=== PATIENT | female | born 1930 | race Caucasian/White ===

== ENCOUNTER 2016-09-03 19:44 | Emergency (ER) | payer OTHER ==
[~2016-09-03] VITALS: Ht 157.5 cm; Wt 63.5 kg
[~2016-09-03 19:44] MED LIST: CALC-179 PO; CRANCAP7 PO; GLUCTAB PO; LOVA20TA PO; MAGN400C2 PO; PRED10PA PO; PRIN10TA PO; SUPECAP3 PO
[2016-09-03 19:50] VITALS: BP 168/74; PULSE 79; RESP 18; TEMP 97.8; O2SAT 98
[2016-09-03] MEDS ORDERED: LEVO50TA4 PO (19:50)
[2016-09-03] MEDS ORDERED: LISI10TA3 PO (19:50)
[2016-09-03] MEDS ORDERED: LOVA40TA PO (19:50)
[2016-09-03] MEDS ORDERED: METF500T PO (19:50)
[2016-09-03] MEDS ORDERED: DIPHTH/TETANUS/ACEL PERTUSSIS (BOOSTER) 0.5 ML VIAL/PFS IM ONE (20:00)
[2016-09-03] MEDS ORDERED: LIDOCAINE 1%/EPINEPHrine 1:100,000 SOLN 20 ML VIAL INFIL ONE (20:00)
--- NOTE | 2016-09-03 20:09 | PD ---
HPI Chief Complaint: Fall Time Seen by Provider: 19:48 Travel History International Travel<30 days: No Contact w/Intl Traveler<30days: No Traveled to known affect area: No History of Present Illness HPI This is an 86 year-old woman who was brushing across the street and tripped and fell. She has a laceration to her left eye, as well as pain in her left hand and in her right knee. Denies LOC. Denies neck pain. Is not on a blood thinner. Otherwise has been feeling well and healthy. History Past Medical History Narrative Medical Diabetes Hypertension Hypothyroidism Hyperlipidemia Tetanus Vaccination: < 5 Years Influenza Vaccination: Yes Menopausal: Yes Social History Alcohol Use: Yes Tobacco Use: No (QUIT 35 YEARS AGO) Allergies-Medications (Allergen,Severity, Reaction): Coded Allergies: Penicillin (Verified Allergy, Severe, 09/03/16) Iodine (Verified Adverse Reaction, Intermediate, UNKNOWN, 09/03/16) Reported Meds & Prescriptions Reported Meds & Active Scripts Active Reported Levothyroxine (Levothyroxine Sodium) 50 Mcg Tab 50 Mcg PO DAILY Lovastatin 40 Mg Tab 40 Mg PO DAILY Lisinopril 10 Mg Tab 10 Mg PO DAILY Metformin (Metformin HCl) 500 Mg Tab 500 Mg PO BIDPC With meals Review of Systems Except as stated in HPI: all other systems reviewed are Neg Physical Exam Narrative GENERAL: Well-appearing 86 year-old woman, no acute distress. SKIN: Warm and dry. HEAD: Atraumatic. Normocephalic. EYES: Pupils equal and round. No scleral icterus. No injection or drainage. ENT: No nasal bleeding or discharge. Mucous membranes pink and moist. Laceration about 1.5 cm over the left brow. NECK: Trachea midline. No midline tenderness. Full painless range of motion. CARDIOVASCULAR: Regular rate and rhythm. No murmur appreciated. RESPIRATORY: No accessory muscle use. Clear to auscultation. Breath sounds equal bilaterally. GASTROINTESTINAL: Abdomen soft, non-tender, nondistended. Hepatic and splenic margins not palpable. MUSCULOSKELETAL: No obvious deformities. Left hand is a little bit deformity with swelling of the third finger. She states this is somewhat chronic but is little bit more swollen and tender than normal. Chest is a little tenderness around the wrist but there is no swelling. There is full range of motion of the wrist. Reflow Operator is a little bit abnormal, but also somewhat chronic for her. She has some pain in the right knee. There is no obvious swelling or deformity. She has full range of motion. NEUROLOGICAL: Awake and alert. No obvious cranial nerve deficits. Motor grossly within normal limits. Normal speech. PSYCHIATRIC: Appropriate mood and affect; insight and judgment normal. Data Data Last Documented VS Vital Signs Date Time Temp Pulse Resp B/P Pulse Ox O2 Delivery O2 Flow Rate FiO2 09/03/16 19:57 79 18 98 Room Air 09/03/16 19:50 97.8 168/[address] Brain W/O Iv Contrast(Rout) (09/03/16 ) Hand, Complete (Urt1ctn) (09/03/16 ) Wrist, Complete (Agy2jsx) (09/03/16 ) Knee, Ltd (1 Or 2vws) (09/03/16 ) Lidocai-Epi 1%-1:100,000 Inj (Xylocaine- (09/03/16 20:00) Iepa-Mxy-Lxuony (Booster) Inj (Boostrix (09/03/16 20:00) MDM Medical Decision Making Medical Screen Exam Complete: Yes Emergency Medical Condition: Yes Interpretation(s) Head CT: No bleed or other acute intracranial abnormality. Densely calcified chronic appearing small biparietal meningiomas. Small nonocclusive fluid and a few the left mastoid air cells. No perceptible fractures. Left hand x-ray: Negative. Left wrist x-ray: Negative. Borderline widening and degenerative changes of scapholunate joint. 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 Right knee x-ray: Negative Differential Diagnosis Laceration, ICH, head injury, knee injury, left upper extremity injury, other Narrative Course Medical decision making INITIAL: Is an 86-year-old woman who presents emergent breath of trip and fall. She laceration to the left brow, pain in the left hand, and some pain in the right knee. We'll check CT head, laceration repair, x-rays left hand and wrist , right knee. Procedures Procedure Narrative LACERATION LOCATION: Left brow LENGTH: 2 cm NUMBER OF STITCHES/BEN: 3 buried, 8 skin REPAIR: The area of the laceration was prepped with Betadine and sterilely draped. The laceration was infiltrated with 1% lidocaine with epinephrine. The wound was copiously irrigated and explored without evidence of foreign body , tendon injury or neurovascular injury. The wound was closed using 5-0 Vicryl , 4-0 proline. This was a 2 layer repair. A sterile dressing was applied. The patient was advised to keep the dressing clean and dry. Patient tolerated the procedure well. Additional Instructions: Use Tylenol as needed for pain. Keep wound clean and dry. Do not wet for 24 hours. After 24 hours and clean the wound gently with soap and water. Gently clean wound twice daily with soap and water. Do not soak wound. No swimming, hot tubs, or allowing wound to get too wet. Apply antibiotic ointment to wound twice daily. Return to the emergency department for any worsening pain, swelling, redness, significant bleeding, or any other new or worsening symptoms. Follow-up with your primary doctor or return to the emergency department in 7 days for suture removal. Med/Other Pt SpecificInfo: No Change to Meds Disposition: 01 DISCHARGE HOME Condition: Stable Tristin Hassan MD Sep 03, 2016 20:09
[2016-09-03 21:00] VITALS: BP 144/70; PULSE 78; RESP 18; O2SAT 99
--- NOTE | 2016-09-03 21:05 | RADHPO ---
EXAM DATE/TIME: 09/03/2016 20:15 [facility] COMPARISON: No previous studies available for comparison. INDICATIONS : Mechanical fall. Left sided head trauma. RADIATION DOSE: 57.21 CTDIvol (mGy) MEDICAL HISTORY : Diabetes. SURGICAL HISTORY : Tonsillectomy. ENCOUNTER: Initial ACUITY: 1 day PAIN SCALE: 7/10 LOCATION: Left cranial TECHNIQUE: Multiple contiguous axial images were obtained of the head. Using automated exposure control and adj ustment of the mA and/or kV according to patient size, radiation dose was kept as low as reasonably a chievable to obtain optimal diagnostic quality images. FINDINGS: CEREBRUM: The ventricles are normal for age. No evidence of midline shift, acute mass lesion, hemorrhage or ac nabor infarction. There are densely calcified meningiomas that measure 8 mm right parietal and 11 mm l eft parietal, neither with significant mass effect or associated midline shift. No extra-axial fluid collections are seen. POSTERIOR FOSSA: The cerebellum and brainstem are intact. The 4th ventricle is midline. The cerebellopontine angle i s unremarkable. EXTRACRANIAL: Small fluid seen in the inferior most left mastoid air cells. SKULL: The calvaria is intact. No evidence of skull fracture. CONCLUSION: 1. No bleed or other acute intracranial abnormality. 2. Densely calcified, chronic appearing small biparietal meningiomas as above. 3. Small, nonspecific fluid in a few of the left mastoid air cells. No perceptible fracture line. Lencho Sheridan MD on September 03, 2016 at 21:01 Board Certified Radiologist. This report was verified electronically.
--- NOTE | 2016-09-03 21:25 | RADHPO ---
EXAM DATE/TIME: 09/03/2016 20:30 [facility] COMPARISON: No previous studies available for comparison. INDICATIONS : Patient states Right knee pain after fall. MEDICAL HISTORY : None. SURGICAL HISTORY : None. ENCOUNTER: Initial ACUITY: 1 day PAIN SCORE: 4/10 LOCATION: Right Knee FINDINGS: Two view examination of the right knee demonstrates no evidence of fracture or dislocation. Bony min eralization is normal. The suprapatellar soft tissues have a normal configuration. CONCLUSION: No fracture or subluxation of the right knee. Lencho Sheridan MD on September 03, 2016 at 21:24 Board Certified Radiologist. This report was verified electronically.
--- NOTE | 2016-09-03 21:27 | RADHPO ---
EXAM DATE/TIME: 09/03/2016 20:33 [facility] COMPARISON: No previous studies available for comparison. INDICATIONS : Patient states left hand pain after fall. MEDICAL HISTORY : None. SURGICAL HISTORY : None. ENCOUNTER: Initial ACUITY: 1 day PAIN SCORE: 4/10 LOCATION: Left Hand FINDINGS: No acute fracture seen of the left hand. Severe, chronic interphalangeal arthropathy noted, special a t the proximal interphalangeal joints of the fingers. There is diffuse osteopenia. Radiographic appea dixie of the soft tissues within normal limits. CONCLUSION: No acute fracture or subluxation seen. Lencho Sheridan MD on September 03, 2016 at 21:24 Board Certified Radiologist. This report was verified electronically.
--- NOTE | 2016-09-03 21:27 | RADHPO ---
EXAM DATE/TIME: 09/03/2016 20:36 [facility] COMPARISON: No previous studies available for comparison. INDICATIONS : Patient states left wrist pain after fall. MEDICAL HISTORY : None. SURGICAL HISTORY : None. ENCOUNTER: Initial ACUITY: 1 day PAIN SCORE: 4/10 LOCATION: Left Wrist FINDINGS: Bones of the left wrist are intact. There is borderline widening and degenerative changes of the scap holunate joint. There is moderate to severe osteoarthritis of the triscaphe and first carpometacarpal joints. CONCLUSION: Chronic findings as above. No acute fracture or subluxation of the left wrist. Lencho Sheridan MD on September 03, 2016 at 21:25 Board Certified Radiologist. This report was verified electronically.
[2016-09-03 22:09] VITALS: BP 145/71
== END 2016-09-03 22:10 | disposition home or self-care (01) ==
LOC: PHED 19:44
DX: S01.112A Laceration without foreign body of left eyelid and periocular area, initial encounter (principal); E11.9 Type 2 diabetes mellitus without complications; I10 Essential (primary) hypertension; E03.9 Hypothyroidism, unspecified; E78.5 Hyperlipidemia, unspecified; M25.561 Pain in right knee; Z23 Encounter for immunization; W18.09XA Striking against other object with subsequent fall, initial encounter; Y99.8 Other external cause status
CPT/HCPCS: 12051; 70450; 73110; 73130; 73560; 90471; 90715